=== PATIENT | male | born 1995 | race Caucasian/White ===

== ENCOUNTER 2018-09-03 17:03 | Emergency (ER) | payer BC ==
[2018-09-03] MEDS ORDERED: Acetaminophen/HYDROcodone 325-10 MG Tab PO ONE (17:04)
[2018-09-03] MEDS ORDERED: Sodium Chloride 0.9% 10 ML Syringe FLUSH PRN (17:28)
[2018-09-03 17:44] LABS: ANION GAP 13.5; CHLORIDE,CL 104 mmol/L (101-111); SODIUM,NA 138 mmol/L (135-145)
[2018-09-03] MEDS ORDERED: Ondansetron 4 MG/2 ML SDV IV ONE (18:14)
[2018-09-03] MEDS ORDERED: Sodium Chloride 0.9% 1,000 ML IV ONE (18:14)
--- NOTE | 2018-09-03 18:40 | EDM.PDOC ---
Scribed by Kitty Teixeira 09/03/18 8620 for Mckenna Lara NP <Mckenna Lara - Last Filed: 09/03/18 18:40> ED HPI GENERAL MEDICAL PROBLEM - General Chief Complaint: Abdominal Pain Time Seen by Provider: 09/03/18 17:20 Source of Information: Reports: Patient, RN, RN Notes Reviewed History Limitations: Reports: No Limitations - History of Present Illness INITIAL COMMENTS - FREE TEXT/NARRATIVE: Patient presented to ER with complaint of left sided abdominal pain that began at 10:00. It comes and goes. States he took ibuprofen 30 minutes ago. It helped the pain. He gets the sweats when pain gets bad. He has no urinary symptoms or blood in urine. No fever, chills, nausea, vomiting, diarrhea, chest pain and shortness of breath. He rates the pain 5/10 now and 10/10 at worst. His last bowel movement was last night. He last ate last evening. Onset: Today Duration: Getting Worse Location: Reports: Abdomen Quality: Reports: Ache Severity: Moderate Improves with: Reports: None Worsens with: Reports: None Associated Symptoms: Reports: No Other Symptoms Left Abdominal Pain Score (Numeric/FACES): 7 - Related Data Allergies Allergy/AdvReac Type Severity Reaction Status Date / Time No Known Allergies Allergy Verified 09/03/18 17:08 Home Meds: Home Meds . [No Known Home Meds] 10/18/17 [History] Past Medical History - Past Health History Medical/Surgical History: Denies Medical/Surgical History ED ROS GENERAL - Review of Systems Review Of Systems: ROS reveals no pertinent complaints other than HPI. ED EXAM, GI/ABD - Physical Exam Exam: See Below Exam Limited By: No Limitations Eyes: Bilateral: Normal Appearance, EOMI Ears: Normal External Exam, Normal Canal, Hearing Grossly Normal, Normal TMs Nose: Normal Inspection, Normal Mucosa, No Blood Throat/Mouth: Normal Inspection, Normal Lips, Normal Teeth, Normal Gums, Normal Oropharynx, Normal Voice, No Airway Compromise Head: Atraumatic, Normocephalic Neck: Normal Inspection, Supple, Non-Tender, Full Range of Motion Respiratory/Chest: No Respiratory Distress, Lungs Clear, Normal Breath Sounds, No Accessory Muscle Use, Chest Non-Tender Cardiovascular: Normal Peripheral Pulses, Regular Rate, Rhythm, No Edema, No Gallop, No JVD, No Murmur, No Rub GI/Abdominal Exam: Other (left side pain. Left CVA tenderness) (Male) Exam: Deferred Rectal (Males) Exam: Deferred Back Exam: Normal Inspection, Full Range of Motion, NT Extremities: Normal Inspection, Normal Range of Motion, Non-Tender, Normal Capillary Refill, No Pedal Edema Neurological: Alert, Oriented, CN II-XII Intact, Normal Cognition, Normal Gait, Normal Reflexes, No Motor/Sensory Deficits Psychiatric: Normal Affect, Normal Mood Skin Exam: Warm, Dry, Intact, Normal Color, No Rash Lymphatic: No Adenopathy Course - Vital Signs Last Recorded V/S: Last Vital Signs Temp 36.6 C 09/03/18 17:10 Pulse 55 L 09/03/18 17:10 Resp 16 09/03/18 17:10 BP 124/80 09/03/18 17:10 Pulse Ox 99 09/03/18 17:10 - Orders/Labs/Meds Orders: Active Orders 24 hr Category Date Time Status Peripheral IV Care [RC] . DIRECTED Care 09/03/18 17:29 Active Sodium Chloride 0.9% [Normal Saline] 1,000 ml Med 09/03/18 18:14 Active IV .BOLUS Sodium Chloride 0.9% [Saline Flush] Med 09/03/18 17:28 Active 10 ml FLUSH ASDIRECTED PRN Peripheral IV Insertion Adult [OM.PC] Stat Oth 09/03/18 17:28 Ordered Medication Orders Sodium Chloride (Normal Saline) 1,000 mls @ 999 mls/hr IV .BOLUS ONE Stop: 09/03/18 19:14 Last Admin: 09/03/18 18:16 Dose: 999 mls/hr Sodium Chloride (Saline Flush) 10 ml FLUSH ASDIRECTED PRN PRN Reason: Keep Vein Open Last Admin: 09/03/18 17:30 Dose: 10 ml Labs: Laboratory Tests 09/03/18 09/03/18 09/03/18 Range/Units 17:15 17:15 17:30 WBC 8.3 (5.0-10.0) 10^3/uL RBC 5.65 (4.6-6.2) 10^6/uL Hgb 14.9 (14.0-18.0) g/dL Hct 44.4 (40.0-54.0) % MCV 78.6 L (80-100) fL MCH 26.4 L (27.0-34.0) pg MCHC 33.6 (33.0-35.0) g/dL Plt Count 225 (150-450) 10^3/uL Neut % (Auto) 52.9 (42.2-75.2) % Lymph % (Auto) 33.2 (20.5-50.1) % [place] % (Auto) 9.5 H (2-8) % Eos % (Auto) 4.2 H (1.0-3.0) % Baso % (Auto) 0.2 (0.0-1.0) % Sodium 138 (135-145) mmol/L Potassium 3.5 L (3.6-5.0) mmol/L Chloride 104 (101-111) mmol/L Carbon Dioxide 24.0 (21.0-31.0) mmol/L Anion Gap 13.5 BUN 19 H (7-18) mg/dL Creatinine 0.9 (0.6-1.3) mg/dL Est Cr Clr Drug Dosing 128.74 mL/min Estimated GFR (MDRD) > 60 BUN/Creatinine Ratio 21.11 Glucose 103 (74-105) mg/dL Calcium 9.0 (8.4-10.2) mg/dl Total Bilirubin 0.7 (0.2-1.0) mg/dL AST 29 (10-42) IU/L ALT 51 (10-60) IU/L Alkaline Phosphatase 48 (42-121) IU/L Total Protein 7.4 (6.7-8.2) g/dl Albumin 4.7 (3.2-5.5) g/dl Globulin 2.7 Albumin/Globulin Ratio 1.74 Urine Color Yellow (YELLOW) Urine Appearance Slightly cloudy (CLEAR) Urine pH 6.0 (5.0-9.0) Ur Specific [place] >= 1.030 (1.005-1.030) Urine Protein 30 H (NEGATIVE) Urine Glucose (UA) Negative (NEGATIVE) Urine Ketones Negative (NEGATIVE) Urine Occult Blood Moderate H (NEGATIVE) Urine Nitrite Negative (NEGATIVE) Urine Bilirubin Negative (NEGATIVE) Urine Urobilinogen 0.2 (0.2-1.0) mg/dL Ur Leukocyte Esterase Negative (NEGATIVE) Urine RBC 5-10 H /HPF Urine WBC Not seen (0-5/HPF) /HPF Ur Epithelial Cells Rare (NOT SEEN) /HPF Urine Bacteria Few (0-FEW/HPF) /HPF Meds: Medications Generic Name Dose Route Start Last Admin Trade Name Freq PRN Reason Stop Dose Admin Sodium Chloride 1,000 mls @ 999 mls/hr 09/03/18 18:14 09/03/18 18:16 Normal Saline IV 09/03/18 19:14 999 mls/hr .BOLUS ONE Administration Sodium Chloride 10 ml 09/03/18 17:28 09/03/18 17:30 Saline Flush FLUSH 10 ml ASDIRECTED PRN Administration Keep Vein Open Discontinued Medications Generic Name Dose Route Start Last Admin Trade Name Freq PRN Reason Stop Dose Admin Ondansetron HCl 4 mg 09/03/18 18:14 09/03/18 18:17 Zofran IV 09/03/18 18:15 4 mg ONETIME ONE Administration Departure - Departure Disposition: Home, Self-Care 01 Clinical Impression: Renal and ureteric calculus - Discharge Information Instructions: Kidney Stones, [id number] Forms: ED Department Discharge Additional Instructions: 1) rest 2) drink lots of liquids 3) follow up at clinic rx togo; norco 10 x1 <Gerardo Dozier - Last Filed: 09/03/18 18:57> Course - Re-Assessments/Exams Free Text/Narrative Re-Assessment/Exam: 09/03/18 18:54 results discussed with pt who is feeling much better now. Departure - Departure Time of Disposition: 18:56 Condition: Good I have read and agree with the documentation that has been completed regarding this visit. By signing this record, I attest that the documentation was completed in my physical presence and is an accurate record of the encounter.
[2018-09-03] MEDS ORDERED: Acetaminophen/HYDROcodone 325-10 MG Tab ONE (18:55)
== END 2018-09-03 19:00 | disposition home or self-care (01) ==
LOC: DL.ED 17:03
DX: N13.2 Hydronephrosis with renal and ureteral calculous obstruction (principal)
CPT/HCPCS: 36415; 74176; 80053; 81001; 85025; 96361; 96374; 99284; A9270; J2405; J7030

== ENCOUNTER 2020-06-22 15:33 | Emergency (ER) | payer BC ==
[2020-06-22] MEDS ORDERED: Tetracaine HCl/PF 0.5% 4 ML Bottle EYELF ONE (15:45)
[2020-06-22] MEDS ORDERED: Fluorescein 1 MG Ophth Strip EYELF ONE (15:45)
[2020-06-22] MEDS ORDERED: Gentamicin 0.3% Ophth Soln 5 ML Bottle EYELF ONE (15:46)
[2020-06-22] MEDS ORDERED: Fluorescein 1 MG Ophth Strip ONE (16:56)
--- NOTE | 2020-06-22 17:11 | EDM.PDOC ---
Scribed by Kitty Teixeira 06/22/20 1549 for Sin Johnson MD ED HPI GENERAL MEDICAL PROBLEM - General Chief Complaint: Eye Problems Stated Complaint: LEFT EYE PAIN Time Seen by Provider: 06/22/20 15:44 Source of Information: Reports: Patient, RN, RN Notes Reviewed History Limitations: Reports: No Limitations - History of Present Illness INITIAL COMMENTS - FREE TEXT/NARRATIVE: Patient presents to ED by POV with complaint that he thinks he might have some metal in his left eye. He was drilling into some metal yesterday. No other injury. Onset Date: 06/21/20 Duration: Getting Worse Location: Reports: Other (left eye) Quality: Reports: Ache Severity: Moderate Improves with: Reports: None Worsens with: Reports: None Associated Symptoms: Reports: No Other Symptoms Left Eye Pain Score (Numeric/FACES): 4 - Related Data Allergies Allergy/AdvReac Type Severity Reaction Status Date / Time No Known Allergies Allergy Verified 09/03/18 17:08 Home Meds: Home Meds . [No Known Home Meds] 10/18/17 [History] Past Medical History - Past Health History Medical/Surgical History: Denies Medical/Surgical History HEENT History: Reports: None Cardiovascular History: Reports: None Respiratory History: Reports: None Gastrointestinal History: Reports: None Genitourinary History: Reports: None Musculoskeletal History: Reports: None Neurological History: Reports: None Psychiatric History: Reports: None Endocrine/Metabolic History: Reports: None Hematologic History: Reports: None Immunologic History: Reports: None Oncologic (Cancer) History: Reports: None Dermatologic History: Reports: None - Past Surgical History GI Surgical History: Reports: Appendectomy Musculoskeletal Surgical History: Reports: Other (See Below) Other Musculoskeletal Surgeries/Procedures:: wrist Social & Family History - Family History Family Medical History: No Pertinent Family History - Living Situation & Occupation Living situation: Reports: with Family Occupation: Employed ED ROS GENERAL - Review of Systems Review Of Systems: Comprehensive ROS is negative, except as noted in HPI. ED EXAM GENERAL W FULL EYE - Physical Exam Exam: See Below Exam Limited By: No Limitations General Appearance: Alert, WD/WN, No Apparent Distress Eye Exam: Right Eye: Normal Inspection, Left Eye: Corneal Abrasion, Bilateral Eye: EOMI, PERRL With Correction: No Eyelids: Left: Lid Everted for Exam, Bilateral: Normal Appearance Conjunctiva & Sclera: Right: Normal Appearance, Left: Injected Cornea Exam: Right: Normal Appearance, Left: Corneal Abrasion Extraocular Movements: Bilateral: Intact Pupils: Normal Accommodation Pupillary Size: Bilateral: 3 mm Pupillary Reaction: Bilateral: Brisk Anterior Chamber: Left: Normal Appearance Nose: Normal Inspection Throat/Mouth: Normal Voice, No Airway Compromise Head: Atraumatic, Normocephalic Respiratory/Chest: No Respiratory Distress Neurological: Alert, Oriented, CN II-XII Intact, No Motor/Sensory Deficits Psychiatric: Normal Affect, Normal Mood Skin Exam: Warm, Dry, Intact, Normal Color, No Rash ED EYE w/ Add Procedure - Eye Procedure Alcaine Drops Administered: Yes Eye FB Removal: Other ([place]) Cyclogel 2 Drops Administered: Left Eye Antibiotic Oinment/Drps Admin: Left Eye Progress: Complete removal of rust ring and metallic FB. Course - Vital Signs Last Recorded V/S: Last Vital Signs Temp 97.8 F 06/22/20 15:49 Pulse 95 06/22/20 15:49 Resp 16 06/22/20 15:49 BP 146/63 H 06/22/20 15:49 Pulse Ox 99 06/22/20 15:49 - Orders/Labs/Meds Orders: Active Orders 24 hr Category Date Time Status Visual Acuity [Vision Test] [RC] ASDIRECTED Care 06/22/20 15:46 Active Meds: Medications Discontinued Medications Generic Name Dose Route Start Last Admin Trade Name Gabriel PRN Reason Stop Dose Admin Fluorescein Sodium 1 mg 06/22/20 15:45 06/22/20 15:53 Fluorescein 1 Mg Ophth Strip EYELF 06/22/20 15:46 1 mg ONETIME ONE Administration Fluorescein Sodium Confirm 06/22/20 16:56 Fluorescein 1 Mg Ophth Strip Administered 06/22/20 16:57 Dose 2 mg .ROUTE .STK-MED ONE Gentamicin Sulfate 1 ml 06/22/20 15:46 06/22/20 15:52 Gentamicin 0.3% Ophth Soln 5 Ml Bottle EYELF 06/22/20 15:47 1 ml ONETIME ONE Administration Tetracaine HCl 1 ml 06/22/20 15:45 06/22/20 15:52 Tetracaine Hcl/Pf 0.5% 4 Ml Bottle EYELF 06/22/20 15:46 1 ml ONETIME ONE Administration Departure - Departure Time of Disposition: 17:08 Disposition: Home, Self-Care 01 Condition: Good Clinical Impression: Corneal rust ring of left eye, Foreign body in cornea, left eye, initial encounter - Discharge Information *PRESCRIPTION DRUG MONITORING PROGRAM REVIEWED*: Not Applicable *COPY OF PRESCRIPTION DRUG MONITORING REPORT IN PATIENT KENZIE: Not Applicable Instructions: Eye Foreign Body, [id number], Corneal Abrasion, [id number] Forms: ED Department Discharge Additional Instructions: Tetracaine: One drop to left eye every 4 hours as needed for pain for the next 24 hours only. Gentamicin: One drop to left eye four times a day for 5 days. Wear sunglasses even when indoors to reduce eye strain and pain. Use Tylenol and Ibuprofen as needed for pain. Follow directions on label for dosing and precautions. Follow up in eye clinic tomorrow or the next day for recheck. Sepsis Event Note (ED) - Focused Exam Vital Signs: Vital Signs Temp Pulse Resp BP Pulse Ox 06/22/20 15:49 97.8 F 95 16 146/63 H 99 - My Orders Last 24 Hours: My Active Orders 06/22/20 15:46 Visual Acuity [Vision Test] [RC] ASDIRECTED - Assessment/Plan Last 24 Hours: My Active Orders 06/22/20 15:46 Visual Acuity [Vision Test] [RC] ASDIRECTED I have read and agree with the documentation that has been completed regarding this visit. By signing this record, I attest that the documentation was completed in my physical presence and is an accurate record of the encounter.
[2020-06-22] MEDS ORDERED: Diphtheria,Pertussis(Acell),Tetanus Vaccine 0.5 ML Syringe IM ONE (17:17)
== END 2020-06-22 17:30 | disposition home or self-care (01) ==
LOC: DL.ED 15:33
DX: T15.02XA Foreign body in cornea, left eye, initial encounter (principal); Z23 Encounter for immunization
CPT/HCPCS: 65220; 90471; 90715; 99283; A9270

== ENCOUNTER 2022-09-09 19:05 | Emergency (ER) | payer BC, OTHER ==
[2022-09-09] MEDS ORDERED: Sodium Chloride 0.9% 10 ML Syringe FLUSH PRN (19:16)
[2022-09-09] MEDS ORDERED: Ketorolac 30 MG/ML SDV IVPUSH ONE (19:20)
[2022-09-09] MEDS ORDERED: Ondansetron 4 MG/2 ML SDV IVPUSH ONE (19:20)
[2022-09-09] MEDS ORDERED: HYDROmorphone 0.5 MG/0.5 ML Syringe IVPUSH ONE (19:20)
[2022-09-09 19:27] LABS: BASOPHILS PERCENT AUTO 0.1 % (0.0-1.0); EOSINOPHILS PERCENT AUTO 4.9 % (1.0-3.0); HEMATOCRIT 43.4 % (40.0-54.0); HEMOGLOBIN 14.6 g/dL (14.0-18.0); MEAN CORPUSCULAR HEMOGLOBIN 26.6 pg (27.0-34.0); MEAN CORPUSCULAR HGB CONC 33.6 g/dL (33.0-35.0); MEAN CORPUSCULAR VOLUME 79.2 fL (80-100); MONOCYTES PERCENT AUTO 7.5 % (2-8); NEUTROPHILS PERCENT AUTO 59.5 % (42.2-75.2); PLATELET COUNT,PLT 241 10^3/uL (150-450); RED BLOOD CELL COUNT 5.48 10^6/uL (4.6-6.2); WHITE BLOOD CELL COUNT,WBC 10.2 10^3/uL (5.0-10.0)
[2022-09-09 19:29] LABS: APPEARANCE,URINE CLEAR (CLEAR); BILIRUBIN,URINE NEGATIVE (NEGATIVE); COLOR,URINE YELLOW (YELLOW); GLUCOSE,URINE NEGATIVE (NEGATIVE); KETONES,URINE NEGATIVE (NEGATIVE); LEUKOCYTE ESTERASE,URINE NEGATIVE (NEGATIVE); NITRITE,URINE NEGATIVE (NEGATIVE); OCCULT BLOOD,URINE MODERATE (NEGATIVE); PH,URINE 5.5 (5.0-9.0); PROTEIN,URINE NEGATIVE (NEGATIVE); UROBILINOGEN,URINE 0.2 mg/dL (0.2-1.0)
[2022-09-09 19:39] LABS: WBC,URINE NOT SEEN /HPF (0-5/HPF)
[2022-09-09 19:40] LABS: BACTERIA,URINE RARE /HPF (0-FEW/HPF); EPITHELIAL CELLS,URINE RARE /HPF (NOT SEEN); YEAST,URINE OCCASIONAL /HPF (NOT SEEN)
[2022-09-09 19:48] LABS: A/G RATIO 1.2; ALANINE AMINOTRANSFERASE,ALT 30 U/L (16-63); ALBUMIN 4.5 g/dL (3.4-5.0); ALKALINE PHOSPHATASE 57 U/L (46-116); ANION GAP 10.8 mEq/L (7-13); ASPARTATE AMNIOTRANSFERASE,AST 18 U/L (15-37); BILIRUBIN TOTAL 0.3 mg/dL (0.2-1.0); BLOOD UREA NITROGEN,BUN 20 mg/dL (7-18); BUN/CREATININE RATIO 15.7 (No establ ref range); C-REACTIVE PROTEIN < 0.2 mg/dL (0.0-0.9); CALCIUM 9.1 mg/dL (8.5-10.1); CARBON DIOXIDE,CO2 29 mmol/L (21-32); CHLORIDE,CL 101 mmol/L (98-107); CREATININE 1.27 mg/dL (0.70-1.30); EST CRCL DRUG DOSING (CG) 88.14 mL/min; ESTIMATED GFR 80 mL/min (>=60); GLUCOSE RANDOM 89 mg/dL (70-99); POTASSIUM,K 3.8 mmol/L (3.5-5.1); PROTEIN TOTAL,TP 8.1 g/dL (6.4-8.2); SODIUM,NA 137 mmol/L (136-145)
[2022-09-09] MEDS ORDERED: Tamsulosin 0.4 MG Cap.ER PO ONE (21:37)
[2022-09-09] MEDS ORDERED: Take Home: Acetaminophen/HYDROcodone 325-5 MG, 5 Tab Pack PO ONE (21:38)
== END 2022-09-09 21:51 | disposition home or self-care (01) ==
LOC: DL.ED 19:05
DX: N13.2 Hydronephrosis with renal and ureteral calculous obstruction (principal)
CPT/HCPCS: 36415; 74176; 80053; 81001; 85025; 86140; 96374; 96375; 99283; 99284-25; A9270-GY; J1170; J1885; J2405; J3490

== ENCOUNTER 2022-09-10 04:58 | Emergency (ER) | payer OTHER ==
[2022-09-10] MEDS ORDERED: Ketorolac 30 MG/ML SDV IM ONE (05:19)
[2022-09-10] MEDS ORDERED: Ondansetron 4 MG Tab.DIS PO ONE (05:20)
[2022-09-10] MEDS ORDERED: Tamsulosin 0.4 MG Cap.ER PO ONE (05:20)
== END 2022-09-10 05:57 | disposition home or self-care (01) ==
LOC: DL.ED 04:58
DX: N13.2 Hydronephrosis with renal and ureteral calculous obstruction (principal)
CPT/HCPCS: 96372; 99282; 99283; A9270; J1885